=== PATIENT | female | born 2000 | race Caucasian/White ===

== ENCOUNTER 2023-04-09 21:19 | Emergency (ER) | payer OTHER, SELFPAY ==
--- NOTE | ~2023-04-09 | XR_ITS ---
EXAMINATION: XR heel RT min 2V INDICATION: Foreign body removal TECHNIQUE: Two views of the right heel are obtained. COMPARISON: 2150 hours FINDINGS: The previously described soft tissue foreign body has been removed. No fracture, dislocatio n, or subluxation. The bones and joint spaces are normal. IMPRESSION: 1. Foreign body removal. Reviewed, dictated and finalized at location A. IMPRESSION: 1. Foreign body removal.
--- NOTE | ~2023-04-09 | XR_ITS ---
EXAMINATION: XR heel RT min 2V INDICATION: Right foot pain, foreign body TECHNIQUE: Two views of the right heel are obtained. COMPARISON: None available FINDINGS: There is a 3 mm linear radiopaque foreign body projecting in the skin at the plantar aspect of the foot in the area of clinical concern. No fracture, dislocation, or subluxation. The bones and joint spaces are normal. IMPRESSION: 1. 3 mm radiopaque foreign body at the area of clinical concern. Reviewed, dictated and finalized at location A.
[2023-04-09 21:27] VITALS: BP 147/86; PULSE 85; RESP 18; TEMP 36.6; O2SAT 99
--- NOTE | 2023-04-09 23:42 | ED.SKABFB ---
HPI - Skin/Abscess/Foreign Bdy General Chief complaint: Skin/Abscess/Foreign Body Stated complaint: glass in R foot Time Seen by Provider: 04/09/23 21:44 Source: patient Mode of arrival: ambulatory Limitations: no limitations History of Present Illness HPI narrative: Patient is a 22-year-old female who presents to the ED with report of a piece of glass in her right heel. Patient reports she was walking along the ground without shoes on and felt a sharp stabbing pain. She noticed a small amount of bleeding from her heel afterwards and saw a glimmer of a piece of glass. She was unable to get the glass out at home. Denies any other concerns. Related Data Allergies Allergy/AdvReac Type Severity Reaction Status Date / Time amoxicillin Allergy Mild Hives / Verified 04/09/23 21:20 Red Face cefdinir Allergy Mild Headache Verified 04/09/23 21:20 Penicillins Allergy Mild Hives / Verified 04/09/23 21:20 Red Face iohexol Allergy Itching Verified 04/09/23 21:20 [From contrast - CT, X-RAY] Review of Systems Review of Systems: CONSTITUTIONAL: Denies fever, chills, or sweats. SKIN: See HPI. MUSCULOSKELETAL: See HPI. All systems reviewed & are unremarkable except as noted in HPI and below Exam Narrative: GENERAL: Well appearing, morbidly obese with BMI of 53, non-toxic, in no acute distress. HEAD: Normocephalic, atraumatic. NECK: Supple. No adenopathy, no masses. RESPIRATORY: Airway patent, respirations nonlabored. CARDIOVASCULAR: Regular rate and rhythm without murmurs, rubs, or gallops. Pedal pulses 2+ and equal bilaterally. MUSCULOSKELETAL: Moves all extremities. Strength/ROM intact without gross deformities. Small puncture wound to middle of right heel with small amount of bleeding. Palpable foreign body just superficial under skin. SKIN: Warm, dry, normal color. No rashes. NEURO: A&O X3. Speech clear. Cranial nerves II-XII grossly intact. Steady gait. No ataxic movements. PSYCHIATRIC: Appropriate mood and affect. Normal interaction. Course Vital Signs Vital signs: Vital Signs Temperature 97.9 F 04/09/23 21:27 Pulse Rate 85 04/09/23 21:27 Respiratory Rate 18 04/09/23 21:27 Blood Pressure 147/86 H 04/09/23 21:27 Pulse Oximetry 99 04/09/23 21:27 Oxygen Delivery Room Air 04/09/23 21:27 Temperature 97.9 F 04/09/23 21:27 Pulse Rate 85 04/09/23 21:27 Respiratory Rate 18 04/09/23 21:27 Blood Pressure 147/86 H 04/09/23 21:27 Pulse Oximetry 99 04/09/23 21:27 Oxygen Delivery Room Air 04/09/23 21:27 Procedures Foreign Body Removal Foreign Body #1: Foreign Body Removal Date: 04/09/23 Foreign Body Removal Time: 23:30 Time Out Performed: yes Site: left and foot (heel) Description of foreign body: other (small piece of glass) Sedation/Analgesia: other (Local anesthetic with 1% lidocaine) Technique: manual removal and incision made to facilitate removal Confirmed by:: direct visualization and radiograph Complications: none Post-procedure exam: awake, alert, normal BP, normal HR and normal O2 sat Neurovascular: normal distal pulse, normal capillary fill, distal light touch sensation intact, distal motor function normal, no signs of compartment syndrome and no change from pre-procedure MDM - Skin/Abscess/Foreign Bdy MDM Narrative Medical decision making narrative: Patient presented to ED with a piece of glass in her right heel. Puncture wound noted with foreign body palpable. X-ray showing superficial foreign body. Area was numbed with small amount of 1% lidocaine. A small incision with 11 blade was made and forceps were used to remove foreign body. 2 very small triangular pieces of glass were removed. Repeat x-ray without further evidence of foreign body. Patient was updated on this and the possibility that there could be very small remaining foreign body present. Given return precautions. Wound
== END 2023-04-09 23:49 | disposition home or self-care (01) ==
PROVIDERS: Emergency Provider Physician Assistant
DX: S91.341A Puncture wound with foreign body, right foot, initial encounter (principal); W45.8XXA Other foreign body or object entering through skin, initial encounter; W25.XXXA Contact with sharp glass, initial encounter
CPT/HCPCS: 28190; 73650; 99283